=== PATIENT | male | born 1940 | race African-American/Black ===

== ENCOUNTER 2017-01-10 18:49 | Inpatient (IN) | payer MEDICARE, BC ==
[~2017-01-10] VITALS: Ht 185.4 cm; Wt 78.1 kg
[~2017-01-10 18:49] MED LIST: ACET250T26 PO; BRIN8DRO BOTHEYE; BROM3DRO BOTHEYE; DONE10TA11 PO; DONE5TAB7 PO; EYE15DRO BOTHEYE; FERR-63 PO; LANS1COM PO; LOTE5GEL OP; LTMX5 LEFTEYE; MIRT15TA PO; TIMO5DRO27 BOTHEYE
[2017-01-10] MEDS ORDERED: SODIUM CHLORIDE 0.9% 500 ML IV ONE (19:57)
[2017-01-10] MEDS ORDERED: OLANZAPINE 10 MG/VIAL IM STA (19:57)
[2017-01-10] MEDS ORDERED: LORAZEPAM 2MG/ML CPJ IV STA (19:57)
[2017-01-10 20:24] LABS: BASOPHILS % 0.8 % (0.0-2.0); EOSINOPHILS % 1.1 % (0.0-5.0); HEMOGLOBIN. 13.2 g/dL (14.0-18.0); LYMPHOCYTES % 40.4 % (20.0-50.0); MEAN CORPUSCULAR HEMOGLOBIN 32.7 pg (28.0-32.0); MEAN CORPUSCULAR VOLUME 96.7 fL (80.0-94.0); MEAN PLATELET VOLUME 7.6 fl (7.4-10.4); NEUTROPHILS % 47.7 % (40.0-76.0); PLATELET 183 x1000/uL (130-400); RED BLOOD CELL COUNT 4.03 mill/uL (4.7-6.1); RED CELL DISTRIBUTION WIDTH 13.3 % (11.6-14.6)
[2017-01-10 20:28] LABS: INR 1.1; PROTHROMBIN TIME 11.1 sec (9.4-11.6)
[2017-01-10 20:41] LABS: CARBON DIOXIDE 24 mEq/L (21-32); CHLORIDE 107 mEq/L (98-107); CREATINE KINASE 369 IU/L (39-308); ETHANOL BLOOD < 10 mg/dL
[2017-01-10 20:42] LABS: TROPONIN I < 0.02 ng/mL (0.00-0.04)
[2017-01-10 20:43] LABS: CLARITY URINE CLEAR (CLEAR); COLOR URINE YELLOW (YELLOW); GLUCOSE URINE TRACE (NEGATIVE); KETONES URINE NEGATIVE (NEGATIVE); LEUKOCYTE ESTERASE URINE NEGATIVE (NEGATIVE); NITRITE URINE NEGATIVE (NEGATIVE); OCCULT BLOOD URINE NEGATIVE (NEGATIVE); PH URINE 6.5 (4.5-8.0); PROTEIN URINE NEGATIVE (NEGATIVE); SPECIFIC GRAVITY URINE 1.013 (1.005-1.030)
[2017-01-10 20:55] LABS: AMMONIA 13 uMol/L (<32)
[2017-01-10 20:59] LABS: *AMPHETAMINES SCREEN URINE NEGATIVE (NEGATIVE); *BARBITURATES SCREEN URINE NEGATIVE (NEGATIVE); *BENZODIAZEPINES SCREEN URINE PRESUMTIVE POSITIVE (NEGATIVE); *COCAINE SCREEN URINE NEGATIVE (NEGATIVE); CANNABINOID URINE SCREEN NEGATIVE (NEGATIVE); METHADONE URINE SCREEN NEGATIVE (NEGATIVE); OPIATES URINE SCREEN NEGATIVE (NEGATIVE); PHENCYCLIDINE URINE SCREEN NEGATIVE (NEGATIVE)
[2017-01-11] VITALS (7 sets, daily range): BP systolic 123–151; BP diastolic 50–77
[2017-01-11] MEDS ORDERED: ATOR10TA69 PO (00:51)
[2017-01-11] MEDS ORDERED: METF500T4 PO (01:29)
[2017-01-11] MEDS ORDERED: MEMA1CAP PO (01:29)
[2017-01-11] MEDS ORDERED: GABA-531 PO (01:29)
[2017-01-11] MEDS ORDERED: MOXI3DRO LEFTEYE (01:30)
[2017-01-11] MEDS ORDERED: TIMO15DR12 RIGHTEYE (01:30)
[2017-01-11] MEDS ORDERED: ALPR-392 PO (01:30)
[2017-01-11] MEDS ORDERED: LATA2.5D2 RIGHTEYE (01:30)
[2017-01-11] MEDS ORDERED: ERYTHROMYCIN RIGHTEYE (01:30)
[2017-01-11] MEDS ORDERED: NEO/3.5O LEFTEYE (01:30)
[2017-01-11] MEDS ORDERED: KETO5DRO80 RIGHTEYE (01:30)
[2017-01-11] MEDS ORDERED: CITA20TA11 PO (01:30)
[2017-01-11] MEDS ORDERED: PRED1DRO LEFTEYE (01:30)
[2017-01-11] MEDS ORDERED: ACETAMINOPHEN 325MG TABLET PO PRN (07:30)
[2017-01-11] MEDS ORDERED: NON FORMULARY PATIENT HOME MED EA XX SCH ×2 (09:30→09:45)
[2017-01-11] MEDS ORDERED: MEDICATION NOT ON FORMULARY EA (Alprazolam 0.25 MG) PO SCH (09:45)
[2017-01-11 09:50] LABS: BASOPHILS % 0.6 % (0.0-2.0); EOSINOPHILS % 1.3 % (0.0-5.0); HEMATOCRIT. 39.6 % (42.0-52.0); HEMOGLOBIN. 13.2 g/dL (14.0-18.0); LYMPHOCYTES % 34.4 % (20.0-50.0); MEAN CORPUSCULAR HEMOGLOBIN 32.2 pg (28.0-32.0); MEAN CORPUSCULAR VOLUME 96.7 fL (80.0-94.0); MEAN PLATELET VOLUME 7.5 fl (7.4-10.4); NEUTROPHILS % 52.7 % (40.0-76.0); PLATELET 186 x1000/uL (130-400); RED BLOOD CELL COUNT 4.09 mill/uL (4.7-6.1); RED CELL DISTRIBUTION WIDTH 13.2 % (11.6-14.6)
[2017-01-11] MEDS ORDERED: ALPRAZOLAM 0.5 MG TABLET PO PRN (10:45)
[2017-01-11 10:52] LABS: CARBON DIOXIDE 26 mEq/L (21-32); CHLORIDE 110 mEq/L (98-107)
[2017-01-11] MEDS: METFORMIN HCL 500MG TABLET PO SCH (11:03)
[2017-01-11] MEDS: MEMANTINE HCL 10MG TABLET PO SCH ×2 (11:04→21:45)
[2017-01-11] MEDS: CITALOPRAM HYDROBROMIDE 20MG TABLET PO SCH (11:04)
[2017-01-11] MEDS: GABAPENTIN 300MG CAPSULE PO SCH ×4 (11:04→21:45)
[2017-01-11] MEDS: PREDNISOLONE ACETATE 1% OPHTH DROPS 1ML LEFTEYE SCH ×4 (11:52→21:36)
[2017-01-11] MEDS: TIMOLOL MALEATE 0.5% OPHTH DROPS 5ML RIGHTEYE SCH ×2 (11:53→18:17)
[2017-01-11] MEDS: KETOROLAC TROMETHAMINE 0.4% OPHTH 5ML RIGHTEYE SCH ×2 (11:53→18:17)
[2017-01-11] MEDS: EYE LEFTEYE SCH ×2 (15:22→21:37)
[2017-01-11] MEDS: MOXIFLOXACIN 0.5% LEFTEYE SCH ×2 (15:22→21:37)
[2017-01-11] MEDS: CEFTRIAXONE 1 G PREMIX 50 ML IV SCH (15:22)
[2017-01-11] MEDS: NEO/POLYMYX B SULF/DEXAMETH OPHTH OINT 3.5GM LEFTEYE SCH (18:15)
[2017-01-11] MEDS ORDERED: MEMANTINE HCL PO SCH (21:00)
[2017-01-11] MEDS: LATANOPROST 0.005% OPHTH DROPS 2.5ML RIGHTEYE SCH (21:37)
[2017-01-11] MEDS: ATORVASTATIN CALCIUM 10MG TABLET PO SCH (21:45)
[2017-01-12] VITALS: BP 126/67
[2017-01-12] MEDS ORDERED: LORAZEPAM 2MG/ML CPJ IV PRN (01:00)
[2017-01-12 04:00] VITALS: BP 131/65
[2017-01-12] MEDS: EYE LEFTEYE SCH ×3 (06:31→21:51)
[2017-01-12] MEDS: MOXIFLOXACIN 0.5% LEFTEYE SCH ×3 (06:31→21:51)
[2017-01-12] MEDS: BLOOD SUGAR DIAGNOSTIC STRIP TEST SCH ×4 (06:40→21:54)
[2017-01-12] MEDS ORDERED: DEXTROSE 50% WATER 50ML SYRINGE IV PRN ×2 (06:45→12:15)
[2017-01-12 08:30] VITALS: BP 114/63
[2017-01-12] MEDS: METFORMIN HCL 500MG TABLET PO SCH (09:43)
[2017-01-12] MEDS: MEMANTINE HCL 10MG TABLET PO SCH ×2 (09:43→21:53)
[2017-01-12] MEDS: CITALOPRAM HYDROBROMIDE 20MG TABLET PO SCH (09:43)
[2017-01-12] MEDS: GABAPENTIN 300MG CAPSULE PO SCH ×4 (09:43→21:53)
[2017-01-12] MEDS: PREDNISOLONE ACETATE 1% OPHTH DROPS 1ML LEFTEYE SCH ×4 (09:44→21:50)
[2017-01-12] MEDS: TIMOLOL MALEATE 0.5% OPHTH DROPS 5ML RIGHTEYE SCH ×2 (09:44→17:42)
[2017-01-12] MEDS: KETOROLAC TROMETHAMINE 0.4% OPHTH 5ML RIGHTEYE SCH ×2 (09:44→17:42)
[2017-01-12] MEDS: CEFTRIAXONE 1 G PREMIX 50 ML IV SCH (09:45)
[2017-01-12 12:30] VITALS: BP 103/62
[2017-01-12] MEDS: INSULIN LISPRO 100 UNITS/ML SUBCUT SCH ×3 (12:53→22:04)
[2017-01-12 16:20] LABS: AMMONIA 45 uMol/L (<32)
[2017-01-12 16:30] LABS: T4 FREE 1.02 ng/dL (0.76-1.46)
[2017-01-12 16:38] LABS: BASOPHILS % 0.7 % (0.0-2.0); EOSINOPHILS % 1.8 % (0.0-5.0); HEMATOCRIT. 39.6 % (42.0-52.0); HEMOGLOBIN. 13.3 g/dL (14.0-18.0); LYMPHOCYTES % 45.2 % (20.0-50.0); MEAN CORPUSCULAR HEMOGLOBIN 32.5 pg (28.0-32.0); MEAN CORPUSCULAR VOLUME 97.1 fL (80.0-94.0); MEAN PLATELET VOLUME 7.9 fl (7.4-10.4); MONOCYTES % 13.6 % (2.0-8.0); NEUTROPHILS % 38.7 % (40.0-76.0); PLATELET 170 x1000/uL (130-400); RED BLOOD CELL COUNT 4.08 mill/uL (4.7-6.1); RED CELL DISTRIBUTION WIDTH 13.1 % (11.6-14.6)
[2017-01-12 16:41] LABS: CARBON DIOXIDE 25 mEq/L (21-32); CHLORIDE 108 mEq/L (98-107)
[2017-01-12] MEDS ORDERED: BLOOD SUGAR DIAGNOSTIC STRIP TEST SCH (16:45)
[2017-01-12 16:54] VITALS: BP 115/61
[2017-01-12 16:54] LABS: VITAMIN B12 SERUM 1398 pg/mL (211-911)
[2017-01-12 16:56] LABS: FOLIC ACID (FOLATE) SERUM > 20.00 ng/mL (>5.38)
[2017-01-12] MEDS: NEO/POLYMYX B SULF/DEXAMETH OPHTH OINT 3.5GM LEFTEYE SCH (17:43)
[2017-01-12 20:00] VITALS: BP 157/93
[2017-01-12] MEDS: LATANOPROST 0.005% OPHTH DROPS 2.5ML RIGHTEYE SCH (21:51)
[2017-01-12] MEDS: ATORVASTATIN CALCIUM 10MG TABLET PO SCH (21:53)
[2017-01-13] MEDS: ALPRAZOLAM 0.25 MG TABLET PO PRN ×2 (00:29→22:42)
[2017-01-13] MEDS: LORAZEPAM 2MG/ML CPJ IV PRN ×2 (03:13→12:47)
[2017-01-13] MEDS: EYE LEFTEYE SCH ×3 (06:02→21:07)
[2017-01-13] MEDS: MOXIFLOXACIN 0.5% LEFTEYE SCH ×3 (06:02→21:07)
[2017-01-13] MEDS: BLOOD SUGAR DIAGNOSTIC STRIP TEST SCH ×4 (06:08→21:00)
[2017-01-13] MEDS: INSULIN LISPRO 100 UNITS/ML SUBCUT SCH ×4 (06:12→21:00)
[2017-01-13 08:30] VITALS: BP 157/77
[2017-01-13] MEDS: CEFTRIAXONE 1 G PREMIX 50 ML IV SCH (09:45)
[2017-01-13] MEDS: GABAPENTIN 300MG CAPSULE PO SCH ×4 (09:46→20:50)
[2017-01-13] MEDS: CITALOPRAM HYDROBROMIDE 20MG TABLET PO SCH (09:46)
[2017-01-13] MEDS: METFORMIN HCL 500MG TABLET PO SCH (09:46)
[2017-01-13] MEDS: MEMANTINE HCL 10MG TABLET PO SCH ×2 (09:47→20:50)
[2017-01-13] MEDS: PREDNISOLONE ACETATE 1% OPHTH DROPS 1ML LEFTEYE SCH ×4 (09:58→20:52)
[2017-01-13] MEDS: TIMOLOL MALEATE 0.5% OPHTH DROPS 5ML RIGHTEYE SCH ×2 (10:00→17:52)
[2017-01-13] MEDS: KETOROLAC TROMETHAMINE 0.4% OPHTH 5ML RIGHTEYE SCH ×2 (10:00→17:51)
[2017-01-13 12:00] VITALS: BP 131/67
[2017-01-13 16:00] VITALS: BP 115/72
[2017-01-13] MEDS: NEO/POLYMYX B SULF/DEXAMETH OPHTH OINT 3.5GM LEFTEYE SCH (17:53)
[2017-01-13 20:00] VITALS: BP 148/71
[2017-01-13] MEDS: ATORVASTATIN CALCIUM 10MG TABLET PO SCH (20:50)
[2017-01-13] MEDS: LATANOPROST 0.005% OPHTH DROPS 2.5ML RIGHTEYE SCH (20:52)
[2017-01-14] VITALS: BP 154/84
[2017-01-14] MEDS: LORAZEPAM 2MG/ML CPJ IV PRN (00:13)
[2017-01-14 04:00] VITALS: BP 122/67
[2017-01-14] MEDS: EYE LEFTEYE SCH ×3 (05:34→21:11)
[2017-01-14] MEDS: MOXIFLOXACIN 0.5% LEFTEYE SCH ×3 (05:34→21:11)
[2017-01-14] MEDS: BLOOD SUGAR DIAGNOSTIC STRIP TEST SCH ×4 (06:14→20:55)
[2017-01-14] MEDS: INSULIN LISPRO 100 UNITS/ML SUBCUT SCH ×4 (06:15→21:39)
[2017-01-14 08:00] VITALS: BP 125/67
[2017-01-14] MEDS: MEMANTINE HCL 10MG TABLET PO SCH ×2 (09:43→21:16)
[2017-01-14] MEDS: CITALOPRAM HYDROBROMIDE 20MG TABLET PO SCH (09:43)
[2017-01-14] MEDS: GABAPENTIN 300MG CAPSULE PO SCH ×4 (09:43→21:16)
[2017-01-14] MEDS: METFORMIN HCL 500MG TABLET PO SCH (09:43)
[2017-01-14] MEDS: CEFTRIAXONE 1 G PREMIX 50 ML IV SCH (09:48)
[2017-01-14] MEDS: KETOROLAC TROMETHAMINE 0.4% OPHTH 5ML RIGHTEYE SCH ×2 (09:49→17:55)
[2017-01-14] MEDS: PREDNISOLONE ACETATE 1% OPHTH DROPS 1ML LEFTEYE SCH ×4 (09:49→21:12)
[2017-01-14] MEDS: TIMOLOL MALEATE 0.5% OPHTH DROPS 5ML RIGHTEYE SCH ×2 (09:49→17:54)
[2017-01-14 12:00] VITALS: BP 106/54
[2017-01-14 16:00] VITALS: BP 114/59
[2017-01-14] MEDS: NEO/POLYMYX B SULF/DEXAMETH OPHTH OINT 3.5GM LEFTEYE SCH ×2 (17:55→21:11)
[2017-01-14 19:08] LABS: HEMATOCRIT. 37.8 % (42.0-52.0); HEMOGLOBIN. 12.6 g/dL (14.0-18.0); MEAN CORPUSCULAR HEMOGLOBIN 32.5 pg (28.0-32.0); MEAN CORPUSCULAR VOLUME 97.2 fL (80.0-94.0); MEAN PLATELET VOLUME 7.6 fl (7.4-10.4); PLATELET 164 x1000/uL (130-400); RED BLOOD CELL COUNT 3.88 mill/uL (4.7-6.1); RED CELL DISTRIBUTION WIDTH 13.2 % (11.6-14.6)
[2017-01-14 19:28] LABS: CARBON DIOXIDE 27 mEq/L (21-32); CHLORIDE 104 mEq/L (98-107)
[2017-01-14 20:00] VITALS: BP 137/46
[2017-01-14] MEDS: LATANOPROST 0.005% OPHTH DROPS 2.5ML RIGHTEYE SCH (21:12)
[2017-01-14] MEDS: ATORVASTATIN CALCIUM 10MG TABLET PO SCH (21:16)
[2017-01-14 22:05] LABS: ATYPICAL LYMPHOCYTES 3; PLATELET ESTIMATE NORMAL
[2017-01-15] VITALS: BP 134/41
[2017-01-15] MEDS: LORAZEPAM 2MG/ML CPJ IV PRN (03:31)
[2017-01-15 04:00] VITALS: BP 159/66
[2017-01-15] MEDS: BLOOD SUGAR DIAGNOSTIC STRIP TEST SCH ×2 (05:07→11:37)
[2017-01-15] MEDS: INSULIN LISPRO 100 UNITS/ML SUBCUT SCH ×2 (05:07→12:49)
[2017-01-15] MEDS: MOXIFLOXACIN 0.5% LEFTEYE SCH ×2 (05:09→13:33)
[2017-01-15] MEDS: EYE LEFTEYE SCH ×2 (05:09→13:33)
[2017-01-15] MEDS: ALPRAZOLAM 0.25 MG TABLET PO PRN (05:09)
[2017-01-15 07:37] VITALS: BP 143/107
[2017-01-15 07:38] VITALS: BP 126/76
[2017-01-15] MEDS: GABAPENTIN 300MG CAPSULE PO SCH ×2 (08:36→13:32)
[2017-01-15] MEDS: MEMANTINE HCL 10MG TABLET PO SCH (08:36)
[2017-01-15] MEDS: CITALOPRAM HYDROBROMIDE 20MG TABLET PO SCH (08:36)
[2017-01-15] MEDS: METFORMIN HCL 500MG TABLET PO SCH (08:37)
[2017-01-15] MEDS: KETOROLAC TROMETHAMINE 0.4% OPHTH 5ML RIGHTEYE SCH (08:38)
[2017-01-15] MEDS: TIMOLOL MALEATE 0.5% OPHTH DROPS 5ML RIGHTEYE SCH (08:38)
[2017-01-15] MEDS: PREDNISOLONE ACETATE 1% OPHTH DROPS 1ML LEFTEYE SCH ×2 (08:40→13:33)
[2017-01-15] MEDS: CEFTRIAXONE 1 G PREMIX 50 ML IV SCH (08:41)
[2017-01-15 12:10] VITALS: BP 124/53
[2017-01-15 12:49] VITALS: BP 124/53
== END 2017-01-15 14:30 | DRG 93 ==
LOC: ER 19:01 → 5WST 22:46 → ENRESERV 22:58 → EDBEDREQ 23:02
PROVIDERS: ADMIT Family Medicine; ATTEND Family Medicine
DX: G92 Toxic encephalopathy (principal); G62.9 Polyneuropathy, unspecified; F03.90 Unspecified dementia, unspecified severity, without behavioral disturbance, psychotic disturbance, mood disturbance, and anxiety; D63.8 Anemia in other chronic diseases classified elsewhere; E11.9 Type 2 diabetes mellitus without complications; I10 Essential (primary) hypertension; E87.6 Hypokalemia; E78.00 Pure hypercholesterolemia, unspecified; E78.5 Hyperlipidemia, unspecified; F41.9 Anxiety disorder, unspecified; H40.9 Unspecified glaucoma; I73.9 Peripheral vascular disease, unspecified; Z98.49 Cataract extraction status, unspecified eye; Z79.84 Long term (current) use of oral hypoglycemic drugs; Z79.899 Other long term (current) drug therapy
CPT/HCPCS: 36415; 70450; 70551; 71010; 80048; 80053; 80305; 80307; 80329; 81001; 82140; 82550; 82607; 82746; 82962; 83036; 84439; 84443; 84481; 84484; 85025; 85610; 87040; 87086; 92610; 93005; 93970; 96372; 96374; 96376; 97110; 97116; 97162; 97530; 99285; G0482; J0696; J1815; J2060; J3490; J7040

== ENCOUNTER 2017-01-16 13:59 | Inpatient (IN) | payer MEDICARE, BC ==
[~2017-01-16] VITALS: Ht 175.3 cm; Wt 79.8 kg
[~2017-01-16 13:59] MED LIST changes: -ACET250T26 PO; +ALPR-392 PO; +ATOR10TA69 PO; -BRIN8DRO BOTHEYE; -BROM3DRO BOTHEYE; +CITA20TA11 PO; -DONE10TA11 PO; -DONE5TAB7 PO; +ERYTHROMYCIN RIGHTEYE; -EYE15DRO BOTHEYE; -FERR-63 PO; +GABA-531 PO; +GABAPENTIN 300MG CAPSULE PO SCH; +KETO5DRO80 RIGHTEYE; -LANS1COM PO; +LATA2.5D2 RIGHTEYE; -LOTE5GEL OP; -LTMX5 LEFTEYE; +MEMA1CAP PO; +METF500T4 PO; -MIRT15TA PO; +MOXI3DRO LEFTEYE; +NEO/3.5O LEFTEYE; +PRED1DRO LEFTEYE; +TIMO15DR12 RIGHTEYE; -TIMO5DRO27 BOTHEYE
[2017-01-16] MEDS ORDERED: LEVOFLOXACIN 750MG PREMIX 150 ML IV ONE (14:30)
[2017-01-16] MEDS ORDERED: SODIUM CHLORIDE 0.9% 1000ML BAG (SEPSIS BOLUS) IV ONE (14:30)
[2017-01-16] MEDS ORDERED: LORAZEPAM 2MG/ML CPJ IM ONE (14:30)
[2017-01-16 14:59] LABS: BASOPHILS % 0.6 % (0.0-2.0); EOSINOPHILS % 1.4 % (0.0-5.0); HEMATOCRIT. 39.2 % (42.0-52.0); HEMOGLOBIN. 13.1 g/dL (14.0-18.0); LYMPHOCYTES % 30.3 % (20.0-50.0); MEAN CORPUSCULAR VOLUME 95.7 fL (80.0-94.0); MEAN PLATELET VOLUME 7.7 fl (7.4-10.4); MONOCYTES % 11.1 % (2.0-8.0); NEUTROPHILS % 56.6 % (40.0-76.0); PLATELET 171 x1000/uL (130-400); RED BLOOD CELL COUNT 4.09 mill/uL (4.7-6.1)
[2017-01-16 15:10] LABS: INR 1.1; PARTIAL THROMBOPLASTIN TIME 26.4 sec (23.4-31.0); PROTHROMBIN TIME 11.1 sec (9.4-11.6)
[2017-01-16 15:16] LABS: CARBON DIOXIDE 30 mEq/L (21-32); CHLORIDE 106 mEq/L (98-107)
[2017-01-16 15:18] LABS: AMMONIA 32 uMol/L (<32)
[2017-01-16 15:21] LABS: TROPONIN I < 0.02 ng/mL (0.00-0.04)
[2017-01-16] MEDS ORDERED: LORAZEPAM 2MG/ML CPJ ONE (15:59)
[2017-01-16] MEDS ORDERED: LORAZEPAM 2MG/ML CPJ IV ONE (16:00)
[2017-01-16 16:17] LABS: CLARITY URINE CLEAR (CLEAR); COLOR URINE YELLOW (YELLOW); GLUCOSE URINE TRACE (NEGATIVE); KETONES URINE NEGATIVE (NEGATIVE); LEUKOCYTE ESTERASE URINE NEGATIVE (NEGATIVE); NITRITE URINE NEGATIVE (NEGATIVE); OCCULT BLOOD URINE 1+ (NEGATIVE); PROTEIN URINE NEGATIVE (NEGATIVE); SPECIFIC GRAVITY URINE 1.027 (1.005-1.030); UROBILINOGEN URINE 0.2 E.U./dL (0.2-1.0)
[2017-01-16] MEDS ORDERED: ASPIRIN 300MG SUPP PR ONE (16:45)
[2017-01-16] MEDS ORDERED: HALOPERIDOL LACTATE 5MG/ML VIAL IM ONE ×2 (18:00→19:45)
[2017-01-16] MEDS ORDERED: ACETAMINOPHEN 650MG/20.3ML UDC GT PRN (18:45)
[2017-01-16] MEDS ORDERED: MAGNESIUM/ALUMINUM HYDROXIDE/SIMETHICONE 30ML UDC PO PRN (18:45)
[2017-01-16] MEDS ORDERED: ACETAMINOPHEN 650MG SUPP PR PRN (18:45)
[2017-01-16] MEDS ORDERED: ONDANSETRON HCL 4MG/2ML VIAL IV PRN (18:45)
[2017-01-16] MEDS ORDERED: ACETAMINOPHEN 325MG TABLET PO PRN (18:45)
[2017-01-17 02:45] VITALS: BP 167/79
[2017-01-17 03:00] VITALS: BP 167/79
[2017-01-17] MEDS ORDERED: DEXTROSE 50% WATER 50ML SYRINGE IV PRN (05:15)
[2017-01-17] MEDS: BLOOD SUGAR DIAGNOSTIC STRIP TEST SCH ×4 (06:33→20:08)
[2017-01-17] MEDS: INSULIN LISPRO 100 UNITS/ML SUBCUT SCH ×4 (06:33→20:15)
[2017-01-17] MEDS: CITALOPRAM HYDROBROMIDE 20MG TABLET PO SCH (09:08)
[2017-01-17] MEDS: GABAPENTIN 300MG CAPSULE PO SCH ×4 (09:08→20:08)
[2017-01-17] MEDS: METFORMIN HCL 500MG TABLET PO SCH (09:08)
[2017-01-17] MEDS: PREDNISOLONE ACETATE 1% OPHTH DROPS 1ML LEFTEYE SCH ×4 (10:30→20:07)
[2017-01-17] MEDS: KETOROLAC TROMETHAMINE 0.4% OPHTH 5ML RIGHTEYE SCH ×2 (10:31→16:51)
[2017-01-17] MEDS: LATANOPROST 0.005% OPHTH DROPS 2.5ML RIGHTEYE SCH ×2 (10:31→16:51)
[2017-01-17] MEDS: TIMOLOL MALEATE 0.5% OPHTH DROPS 5ML RIGHTEYE SCH ×2 (10:31→16:51)
[2017-01-17] MEDS: QUETIAPINE FUMARATE 25MG TABLET PO SCH ×2 (10:58→20:08)
[2017-01-17] MEDS: HALOPERIDOL LACTATE 5MG/ML VIAL IM PRN ×2 (13:01→20:09)
[2017-01-17 16:00] VITALS: BP 136/57
[2017-01-17] MEDS ORDERED: HYDRALAZINE 20MG/ML VIAL IV PRN ×2 (17:15→17:37)
[2017-01-17 19:45] LABS: BASOPHILS % 0.6 % (0.0-2.0); EOSINOPHILS % 0.9 % (0.0-5.0); HEMATOCRIT. 39.5 % (42.0-52.0); HEMOGLOBIN. 13.3 g/dL (14.0-18.0); LYMPHOCYTES % 20.5 % (20.0-50.0); MEAN CORPUSCULAR HEMOGLOBIN 32.4 pg (28.0-32.0); MEAN PLATELET VOLUME 7.5 fl (7.4-10.4); PLATELET 182 x1000/uL (130-400); RED BLOOD CELL COUNT 4.11 mill/uL (4.7-6.1); RED CELL DISTRIBUTION WIDTH 13.2 % (11.6-14.6)
[2017-01-17 19:46] LABS: HEMOGLOBIN. 13.3 g/dL (14.0-18.0); MEAN CORPUSCULAR HEMOGLOBIN 32.6 pg (28.0-32.0); PLATELET 187 x1000/uL (130-400); RED BLOOD CELL COUNT 4.06 mill/uL (4.7-6.1); RED CELL DISTRIBUTION WIDTH 12.7 % (11.6-14.6)
[2017-01-17 20:02] LABS: CHLORIDE 102 mEq/L (98-107)
[2017-01-17 20:06] LABS: CARBON DIOXIDE 25 mEq/L (21-32)
[2017-01-17] MEDS: ATORVASTATIN CALCIUM 10MG TABLET PO SCH (20:08)
[2017-01-17 23:04] LABS: ATYPICAL LYMPHOCYTES 1; PLATELET ESTIMATE NORMAL
[2017-01-18] VITALS: BP 109/77
[2017-01-18 04:00] VITALS: BP 125/66
[2017-01-18] MEDS: BLOOD SUGAR DIAGNOSTIC STRIP TEST SCH ×4 (06:28→21:16)
[2017-01-18] MEDS: INSULIN LISPRO 100 UNITS/ML SUBCUT SCH ×4 (06:28→21:00)
[2017-01-18 07:52] VITALS: BP 96/81
[2017-01-18] MEDS: QUETIAPINE FUMARATE 25MG TABLET PO SCH ×2 (09:00→21:17)
[2017-01-18] MEDS: GABAPENTIN 300MG CAPSULE PO SCH ×5 (09:00→21:17)
[2017-01-18] MEDS: METFORMIN HCL 500MG TABLET PO SCH (09:00)
[2017-01-18] MEDS: CITALOPRAM HYDROBROMIDE 20MG TABLET PO SCH (09:00)
[2017-01-18] MEDS: TIMOLOL MALEATE 0.5% OPHTH DROPS 5ML RIGHTEYE SCH ×2 (09:42→17:00)
[2017-01-18] MEDS: KETOROLAC TROMETHAMINE 0.4% OPHTH 5ML RIGHTEYE SCH ×2 (09:42→17:00)
[2017-01-18] MEDS: PREDNISOLONE ACETATE 1% OPHTH DROPS 1ML LEFTEYE SCH ×4 (09:42→21:18)
[2017-01-18] MEDS: LATANOPROST 0.005% OPHTH DROPS 2.5ML RIGHTEYE SCH ×2 (09:42→17:00)
[2017-01-18 12:00] VITALS: BP 114/56
[2017-01-18] MEDS ORDERED: SODIUM CHLORIDE 0.9% 1,000 ML IV ONE (12:45)
[2017-01-18] MEDS: HALOPERIDOL LACTATE 5MG/ML VIAL IM PRN (14:06)
[2017-01-18 16:24] VITALS: BP 130/55
[2017-01-18] MEDS: DEXT 5%/0.9% NACL 1,000 ML IV SCH (16:59)
[2017-01-18 20:00] VITALS: BP 136/64
[2017-01-18] MEDS: ENOXAPARIN 40MG/0.4ML SYR SUBCUT SCH (21:16)
[2017-01-18] MEDS: ATORVASTATIN CALCIUM 10MG TABLET PO SCH (21:17)
[2017-01-19] VITALS: BP 146/63
[2017-01-19 04:00] VITALS: BP 151/71
[2017-01-19] MEDS: DEXT 5%/0.9% NACL 1,000 ML IV SCH ×2 (05:12→17:03)
[2017-01-19] MEDS: INSULIN LISPRO 100 UNITS/ML SUBCUT SCH ×4 (06:33→20:52)
[2017-01-19] MEDS: BLOOD SUGAR DIAGNOSTIC STRIP TEST SCH ×4 (06:33→20:35)
[2017-01-19 08:00] VITALS: BP 142/73
[2017-01-19] MEDS: CITALOPRAM HYDROBROMIDE 20MG TABLET PO SCH (08:43)
[2017-01-19] MEDS: METFORMIN HCL 500MG TABLET PO SCH (08:43)
[2017-01-19] MEDS: GABAPENTIN 300MG CAPSULE PO SCH ×2 (08:43→12:29)
[2017-01-19] MEDS: LATANOPROST 0.005% OPHTH DROPS 2.5ML RIGHTEYE SCH ×2 (08:44→17:03)
[2017-01-19] MEDS: PREDNISOLONE ACETATE 1% OPHTH DROPS 1ML LEFTEYE SCH ×4 (08:44→20:56)
[2017-01-19] MEDS: KETOROLAC TROMETHAMINE 0.4% OPHTH 5ML RIGHTEYE SCH ×2 (08:44→17:03)
[2017-01-19] MEDS: QUETIAPINE FUMARATE 25MG TABLET PO SCH ×2 (08:44→20:57)
[2017-01-19] MEDS: TIMOLOL MALEATE 0.5% OPHTH DROPS 5ML RIGHTEYE SCH ×2 (08:44→17:03)
[2017-01-19 12:00] VITALS: BP 118/60
[2017-01-19 16:00] VITALS: BP 105/56
[2017-01-19] MEDS: HALOPERIDOL LACTATE 5MG/ML VIAL IM PRN (18:23)
[2017-01-19 20:00] VITALS: BP 144/95
[2017-01-19] MEDS: ENOXAPARIN 40MG/0.4ML SYR SUBCUT SCH (20:56)
[2017-01-19] MEDS: ATORVASTATIN CALCIUM 10MG TABLET PO SCH (20:56)
[2017-01-20] VITALS: BP 128/60
[2017-01-20] MEDS: HALOPERIDOL LACTATE 5MG/ML VIAL IM PRN ×2 (01:43→07:34)
[2017-01-20 04:00] VITALS: BP 147/69
[2017-01-20] MEDS: DEXT 5%/0.9% NACL 1,000 ML IV SCH (05:40)
[2017-01-20] MEDS: BLOOD SUGAR DIAGNOSTIC STRIP TEST SCH ×4 (05:46→21:36)
[2017-01-20] MEDS: INSULIN LISPRO 100 UNITS/ML SUBCUT SCH ×4 (05:48→21:00)
[2017-01-20] MEDS: QUETIAPINE FUMARATE 25MG TABLET PO SCH ×2 (07:38→21:07)
[2017-01-20] MEDS: CITALOPRAM HYDROBROMIDE 20MG TABLET PO SCH (07:38)
[2017-01-20] MEDS: TIMOLOL MALEATE 0.5% OPHTH DROPS 5ML RIGHTEYE SCH ×2 (07:45→17:57)
[2017-01-20] MEDS: LATANOPROST 0.005% OPHTH DROPS 2.5ML RIGHTEYE SCH ×2 (07:45→17:57)
[2017-01-20] MEDS: PREDNISOLONE ACETATE 1% OPHTH DROPS 1ML LEFTEYE SCH ×4 (07:45→21:08)
[2017-01-20] MEDS: KETOROLAC TROMETHAMINE 0.4% OPHTH 5ML RIGHTEYE SCH ×2 (07:45→17:56)
[2017-01-20 08:00] VITALS: BP 183/79
[2017-01-20] MEDS ORDERED: HYDRALAZINE 20MG/ML VIAL IM SCH (08:15)
[2017-01-20] MEDS ORDERED: LORAZEPAM 2MG/ML CPJ IM PRN (08:15)
[2017-01-20] MEDS ORDERED: LORAZEPAM 2MG/ML CPJ IM SCH (08:30)
[2017-01-20] MEDS: METFORMIN HCL 500MG TABLET PO SCH (09:00)
[2017-01-20 12:00] VITALS: BP 113/45
[2017-01-20] MEDS: ENALAPRIL 1.25MG/ML VIAL 1ML IV SCH ×2 (12:30→17:46)
[2017-01-20] MEDS ORDERED: MOXIFLOXACIN HCL LEFTEYE SCH (13:00)
[2017-01-20] MEDS: MOXIFLOXACIN 0.5% LEFTEYE SCH ×2 (14:00→21:08)
[2017-01-20 16:19] VITALS: BP 120/44
[2017-01-20 16:38] LABS: HEMATOCRIT. 36.4 % (42.0-52.0); HEMOGLOBIN. 12.1 g/dL (14.0-18.0); MEAN PLATELET VOLUME 7.7 fl (7.4-10.4); PLATELET 165 x1000/uL (130-400); RED BLOOD CELL COUNT 3.79 mill/uL (4.7-6.1); RED CELL DISTRIBUTION WIDTH 12.9 % (11.6-14.6)
[2017-01-20 17:16] LABS: CARBON DIOXIDE 30 mEq/L (21-32); CHLORIDE 106 mEq/L (98-107)
[2017-01-20] MEDS: MEMANTINE HCL 5MG TABLET PO SCH (17:48)
[2017-01-20 18:37] LABS: PLATELET ESTIMATE NORMAL
[2017-01-20 20:00] VITALS: BP 112/38
[2017-01-20] MEDS ORDERED: MEMANTINE HCL PO SCH (21:00)
[2017-01-20] MEDS ORDERED: NAMENDA 28 MG PO SCH (21:00)
[2017-01-20] MEDS: ATORVASTATIN CALCIUM 10MG TABLET PO SCH (21:07)
[2017-01-20] MEDS: ENOXAPARIN 40MG/0.4ML SYR SUBCUT SCH (21:08)
[2017-01-21] VITALS: BP 142/61
[2017-01-21] MEDS: DEXT 5%/0.9% NACL 1,000 ML IV SCH (03:42)
[2017-01-21 04:00] VITALS: BP 150/62
[2017-01-21] MEDS: MOXIFLOXACIN 0.5% LEFTEYE SCH ×3 (06:59→22:22)
[2017-01-21] MEDS: INSULIN LISPRO 100 UNITS/ML SUBCUT SCH ×4 (07:40→21:00)
[2017-01-21] MEDS: BLOOD SUGAR DIAGNOSTIC STRIP TEST SCH ×4 (07:43→20:57)
[2017-01-21] MEDS: HALOPERIDOL LACTATE 5MG/ML VIAL IM PRN ×2 (07:48→22:21)
[2017-01-21 08:00] VITALS: BP 121/36
[2017-01-21] MEDS: MEMANTINE HCL 5MG TABLET PO SCH (10:55)
[2017-01-21] MEDS: QUETIAPINE FUMARATE 25MG TABLET PO SCH ×2 (10:55→21:00)
[2017-01-21] MEDS: TIMOLOL MALEATE 0.5% OPHTH DROPS 5ML RIGHTEYE SCH ×2 (10:58→17:00)
[2017-01-21] MEDS: PREDNISOLONE ACETATE 1% OPHTH DROPS 1ML LEFTEYE SCH ×4 (10:58→22:23)
[2017-01-21] MEDS: LATANOPROST 0.005% OPHTH DROPS 2.5ML RIGHTEYE SCH ×2 (10:58→17:00)
[2017-01-21] MEDS: KETOROLAC TROMETHAMINE 0.4% OPHTH 5ML RIGHTEYE SCH ×2 (10:59→17:00)
[2017-01-21 16:00] VITALS: BP 130/51
[2017-01-21] MEDS ORDERED: LIDOCAINE HCL 1% 20ML VIAL (Pyxis) INJ ONE (19:00)
[2017-01-21 20:00] VITALS: BP 111/54
[2017-01-21] MEDS: ATORVASTATIN CALCIUM 10MG TABLET PO SCH (21:00)
[2017-01-21] MEDS: ENOXAPARIN 40MG/0.4ML SYR SUBCUT SCH (22:21)
[2017-01-22] VITALS: BP 147/74
[2017-01-22] MEDS: HALOPERIDOL LACTATE 5MG/ML VIAL IM PRN (03:50)
[2017-01-22 04:00] VITALS: BP 147/74
[2017-01-22] MEDS: DEXT 5%/0.9% NACL 1,000 ML IV SCH ×2 (04:44→17:37)
[2017-01-22] MEDS: HYDRALAZINE 10 MG in SODIUM CHLORIDE 0.9% 49.5 ML IV PRN (05:10)
[2017-01-22] MEDS ORDERED: HYDRALAZINE 20MG/ML VIAL ONE (05:12)
[2017-01-22] MEDS: MOXIFLOXACIN 0.5% LEFTEYE SCH ×3 (06:00→22:00)
[2017-01-22] MEDS: INSULIN LISPRO 100 UNITS/ML SUBCUT SCH ×4 (06:19→21:17)
[2017-01-22] MEDS: BLOOD SUGAR DIAGNOSTIC STRIP TEST SCH ×4 (06:19→21:19)
[2017-01-22 08:00] VITALS: BP 164/60
[2017-01-22] MEDS: MEMANTINE HCL 5MG TABLET PO SCH (08:53)
[2017-01-22] MEDS: QUETIAPINE FUMARATE 25MG TABLET PO SCH ×2 (08:53→21:18)
[2017-01-22] MEDS: KETOROLAC TROMETHAMINE 0.4% OPHTH 5ML RIGHTEYE SCH ×2 (08:54→17:37)
[2017-01-22] MEDS: PREDNISOLONE ACETATE 1% OPHTH DROPS 1ML LEFTEYE SCH ×4 (08:54→21:18)
[2017-01-22] MEDS: LATANOPROST 0.005% OPHTH DROPS 2.5ML RIGHTEYE SCH ×2 (08:54→17:36)
[2017-01-22] MEDS: TIMOLOL MALEATE 0.5% OPHTH DROPS 5ML RIGHTEYE SCH ×2 (08:54→17:36)
[2017-01-22 12:00] VITALS: BP 180/67
[2017-01-22 16:00] VITALS: BP 155/52
[2017-01-22 20:00] VITALS: BP 140/60
[2017-01-22] MEDS: ATORVASTATIN CALCIUM 10MG TABLET PO SCH (21:18)
[2017-01-22] MEDS: ENOXAPARIN 40MG/0.4ML SYR SUBCUT SCH (21:19)
[2017-01-22] MEDS: MIRTAZAPINE 15MG TABLET PO SCH (22:00)
[2017-01-23 00:58] VITALS: BP 140/60
[2017-01-23 04:00] VITALS: BP 155/61
[2017-01-23] MEDS: MOXIFLOXACIN 0.5% LEFTEYE SCH ×3 (05:15→22:11)
[2017-01-23] MEDS: DEXT 5%/0.9% NACL 1,000 ML IV SCH ×2 (05:34→18:03)
[2017-01-23] MEDS: INSULIN LISPRO 100 UNITS/ML SUBCUT SCH ×4 (06:51→20:51)
[2017-01-23] MEDS: BLOOD SUGAR DIAGNOSTIC STRIP TEST SCH ×4 (06:51→21:54)
[2017-01-23 08:00] VITALS: BP 132/63
[2017-01-23] MEDS: QUETIAPINE FUMARATE 25MG TABLET PO SCH ×2 (08:53→20:32)
[2017-01-23] MEDS: MEMANTINE HCL 5MG TABLET PO SCH (08:53)
[2017-01-23] MEDS: PREDNISOLONE ACETATE 1% OPHTH DROPS 1ML LEFTEYE SCH ×4 (08:54→20:40)
[2017-01-23] MEDS: KETOROLAC TROMETHAMINE 0.4% OPHTH 5ML RIGHTEYE SCH ×2 (08:54→18:02)
[2017-01-23] MEDS: TIMOLOL MALEATE 0.5% OPHTH DROPS 5ML RIGHTEYE SCH ×2 (08:54→18:01)
[2017-01-23] MEDS: LATANOPROST 0.005% OPHTH DROPS 2.5ML RIGHTEYE SCH ×2 (08:54→18:02)
[2017-01-23 11:46] VITALS: BP 177/59
[2017-01-23] MEDS ORDERED: HYDRALAZINE 20MG/ML VIAL ONE (12:02)
[2017-01-23] MEDS: HYDRALAZINE 10 MG in SODIUM CHLORIDE 0.9% 49.5 ML IV PRN (14:07)
[2017-01-23 16:00] VITALS: BP 119/35
[2017-01-23 16:24] LABS: CHLORIDE 109 mEq/L (98-107); HEMATOCRIT. 36.5 % (42.0-52.0); HEMOGLOBIN. 12.1 g/dL (14.0-18.0); MEAN CORPUSCULAR HEMOGLOBIN 31.6 pg (28.0-32.0); MEAN CORPUSCULAR VOLUME 95.1 fL (80.0-94.0); MEAN PLATELET VOLUME 7.9 fl (7.4-10.4); PLATELET 166 x1000/uL (130-400); RED BLOOD CELL COUNT 3.84 mill/uL (4.7-6.1); RED CELL DISTRIBUTION WIDTH 12.7 % (11.6-14.6)
[2017-01-23 16:32] LABS: CARBON DIOXIDE 28 mEq/L (21-32)
[2017-01-23 17:18] LABS: PLATELET ESTIMATE NORMAL
[2017-01-23] MEDS: ENOXAPARIN 40MG/0.4ML SYR SUBCUT SCH (19:36)
[2017-01-23] MEDS ORDERED: POTASSIUM CHLORIDE 20MEQ TABLET SR PO NR (20:00)
[2017-01-23 20:30] VITALS: BP 130/66
[2017-01-23] MEDS: ATORVASTATIN CALCIUM 10MG TABLET PO SCH (20:32)
[2017-01-23] MEDS: MIRTAZAPINE 15MG TABLET PO SCH (20:32)
[2017-01-24] VITALS: BP 120/66
[2017-01-24 04:00] VITALS: BP 142/80
[2017-01-24] MEDS: MOXIFLOXACIN 0.5% LEFTEYE SCH ×2 (06:01→13:20)
[2017-01-24] MEDS: BLOOD SUGAR DIAGNOSTIC STRIP TEST SCH ×3 (06:11→17:47)
[2017-01-24] MEDS: INSULIN LISPRO 100 UNITS/ML SUBCUT SCH ×3 (06:21→18:19)
[2017-01-24 07:57] VITALS: BP 189/77
[2017-01-24] MEDS: QUETIAPINE FUMARATE 25MG TABLET PO SCH (08:59)
[2017-01-24] MEDS: DEXT 5%/0.9% NACL 1,000 ML IV SCH (09:00)
[2017-01-24] MEDS: LATANOPROST 0.005% OPHTH DROPS 2.5ML RIGHTEYE SCH ×2 (09:00→18:20)
[2017-01-24] MEDS: KETOROLAC TROMETHAMINE 0.4% OPHTH 5ML RIGHTEYE SCH ×2 (09:01→18:20)
[2017-01-24] MEDS: TIMOLOL MALEATE 0.5% OPHTH DROPS 5ML RIGHTEYE SCH ×2 (09:01→18:20)
[2017-01-24] MEDS: PREDNISOLONE ACETATE 1% OPHTH DROPS 1ML LEFTEYE SCH ×3 (09:01→18:20)
[2017-01-24 12:00] VITALS: BP 132/55
[2017-01-24] MEDS: MEMANTINE HCL 5MG TABLET PO SCH (12:12)
[2017-01-24 16:00] VITALS: BP 144/52
[2017-01-24 17:00] VITALS: BP 144/52
[2017-01-24] MEDS ORDERED: MIRT15TA6 PO (18:30)
[2017-01-24] MEDS ORDERED: QUET25TA PO (18:30)
== END 2017-01-24 20:15 | DRG 689 ==
LOC: ER 14:11 → 8WST 20:58 → ENRESERV 22:00 → 8WST 01-17 02:45
PROVIDERS: ADMIT Family Medicine; ATTEND Family Medicine
PROC: 02HV33Z Insertion of Infusion Device into Superior Vena Cava, Percutaneous Approach (ICD-10-PCS; principal; 2017-01-21)
PROC: B5181ZA Fluoroscopy of Superior Vena Cava using Low Osmolar Contrast, Guidance (ICD-10-PCS; 2017-01-21)
PROC: B548ZZA Ultrasonography of Superior Vena Cava, Guidance (ICD-10-PCS; 2017-01-21)
DX: N39.0 Urinary tract infection, site not specified (principal); G93.41 Metabolic encephalopathy; E11.42 Type 2 diabetes mellitus with diabetic polyneuropathy; G30.9 Alzheimer's disease, unspecified; F05 Delirium due to known physiological condition; F02.81 Dementia in other diseases classified elsewhere, unspecified severity, with behavioral disturbance; Z91.81 History of falling; F41.9 Anxiety disorder, unspecified; E78.00 Pure hypercholesterolemia, unspecified; I10 Essential (primary) hypertension; F31.9 Bipolar disorder, unspecified; R62.7 Adult failure to thrive; Z74.01 Bed confinement status; Z79.2 Long term (current) use of antibiotics; Z79.84 Long term (current) use of oral hypoglycemic drugs; Z79.899 Other long term (current) drug therapy
CPT/HCPCS: 36415; 36569; 51702; 70450; 71010; 76937; 77001; 80053; 81001; 82140; 82962; 83605; 84484; 85007; 85025; 85027; 85610; 85730; 86850; 86900; 87040; 87086; 93005; 96365; 96366; 96372; 96375; 97110; 97163; 97530; 99285; C1725; C1893; J0360; J1630; J1650; J1815; J1956; J2060; J3490; J7030; J7042; J7050; A4315